=== PATIENT | male | born 1975 | race Caucasian/White ===

== ENCOUNTER → 2020-07-01 | Outpatient (CLI) | payer BC ==
[~2020-07-01] MED LIST: ERYTHROMYCIN OPH1 GM OPH; NKHM
== END | disposition home or self-care (01) ==
LOC: US 10:59
PROVIDERS: ATTEND Nurse Practitioner Family
DX: N43.3 Hydrocele, unspecified (principal); N44.2 Benign cyst of testis

== ENCOUNTER 2022-05-08 21:41 | Emergency (ER) | payer BC ==
[~2022-05-08] VITALS: Ht 170.1 cm; Wt 106.6 kg
[2022-05-08] MEDS ORDERED: CEPHALEXIN500 M1 PO (23:11)
== END 2022-05-08 23:33 | disposition home or self-care (01) ==
LOC: ED 21:41
DX: S61.207A Unspecified open wound of left little finger without damage to nail, initial encounter (principal); Z98.890 Other specified postprocedural states; W26.9XXA Contact with unspecified sharp object(s), initial encounter; Y93.89 Activity, other specified; Y92.89 Other specified places as the place of occurrence of the external cause; Y99.0 Civilian activity done for income or pay